=== PATIENT | female | born 2000 | race Caucasian/White ===

== ENCOUNTER 2023-01-30 13:58 | Outpatient (CLI) | payer OTHER, SELFPAY | END 2023-01-30 13:59 | disposition home or self-care (01) | PROVIDERS: PCP Physician Assistant Medical; Visit Provider Physician Assistant Medical | DX: R51.9 Headache, unspecified (principal) | CPT/HCPCS: 84443 ==

== ENCOUNTER 2023-02-08 15:21 | Outpatient (CLI) | payer OTHER, SELFPAY ==
--- NOTE | 2023-02-08 15:30 | CRLHL7_ITS ---
For Patients: As a result of the Century Cures Act, medical imaging exams and procedure reports are released immediately into your electronic medical record. You may view this report before your referring provider. If you have questions, please contact your health care provider. Indication: Headaches. Technique: Noncontrast sagittal T1, axial FLAIR, T2, diffusion weighted sequences are provided. No comparisons. Findings: The ventricles, sulci and gyri are normal size, shape and contour for age. The midline structures are centrally located with no evidence of shift. There are no suspicious intra or extra-axial fluid collections. No region of restricted diffusion. Expected flow voids in the cavernous carotids and basilar artery. Mild mucosal thickening within the ethmoid and maxillary sinuses. Impression: 1. No radiographic evidence of acute intracranial abnormalities. Dictated by Sid Crisostomo MD @ 02/08/2023 4:27:38 PM (Electronically Signed)
== END 2023-02-08 15:22 | disposition home or self-care (01) ==
PROVIDERS: PCP Physician Assistant Medical; Visit Provider Physician Assistant Medical
DX: G44.219 Episodic tension-type headache, not intractable (principal); H53.9 Unspecified visual disturbance
CPT/HCPCS: 70551

== ENCOUNTER 2023-11-21 15:06 | Outpatient (CLI) | payer OTHER, SELFPAY | END 2023-11-21 15:07 | disposition home or self-care (01) | PROVIDERS: PCP Physician Assistant Medical; Visit Provider Physician Assistant Medical | DX: R53.83 Other fatigue (principal); F41.9 Anxiety disorder, unspecified; L70.9 Acne, unspecified | CPT/HCPCS: 80053; 82306; 82607; 82728 ==

== ENCOUNTER 2024-02-19 14:12 | Outpatient (CLI) | payer OTHER, SELFPAY | END 2024-02-19 14:13 | disposition home or self-care (01) | LOC: NFLDREF 02-20 11:35 | PROVIDERS: PCP Physician Assistant Medical; Referring Provider Physician Assistant Medical; Visit Provider Physician Assistant Medical | DX: F41.9 Anxiety disorder, unspecified (principal); G47.00 Insomnia, unspecified; G47.9 Sleep disorder, unspecified; R79.0 Abnormal level of blood mineral | CPT/HCPCS: 82728 ==

== ENCOUNTER 2024-12-16 07:50 | Outpatient (CLI) | payer OTHER, SELFPAY | END 2024-12-16 07:51 | disposition home or self-care (01) | PROVIDERS: PCP Physician Assistant Medical; Visit Provider Physician Assistant Medical | DX: R14.0 Abdominal distension (gaseous) (principal); R63.5 Abnormal weight gain; G47.00 Insomnia, unspecified; Z13.810 Encounter for screening for upper gastrointestinal disorder | CPT/HCPCS: 82728; 82784; 84439; 84443; 86231; 86258; 86364 ==

== ENCOUNTER 2024-12-22 08:14 | Outpatient (CLI) | payer OTHER, SELFPAY ==
[2024-12-22 15:10] LABS: Chlamydia DNA Amplified* NOT DETECTED (No Detected); GC DNA Amplified* NOT DETECTED (No Detected)
[2024-12-23 15:37] LABS: HPV Source Cervical/Vag
[2024-12-25 12:56] LABS: Pap Test Digital Imaging Done
== END 2024-12-22 08:15 | disposition home or self-care (01) ==
PROVIDERS: PCP Physician Assistant Medical; Visit Provider Physician Assistant Medical
DX: Z12.4 Encounter for screening for malignant neoplasm of cervix (principal); Z11.51 Encounter for screening for human papillomavirus (HPV)
CPT/HCPCS: 87491; 87591; 87624; 87625; 88141; 88142; 88175